=== PATIENT | female | born 1995 | race Caucasian/White ===

== ENCOUNTER 2022-01-10 09:34 | Outpatient (REF) | payer OTHER, SELFPAY ==
[2022-01-10 10:35] LABS: COVID-19 Test Negative (Negative)
== END 2022-01-10 09:35 | disposition home or self-care (01) ==
LOC: HO.LAB 09:34
PROVIDERS: PCP Internal Medicine; Visit Provider Internal Medicine
DX: Z20.822 Contact with and (suspected) exposure to COVID-19 (principal)
CPT/HCPCS: 87635; C9803

== ENCOUNTER 2025-09-01 13:10 | Outpatient (AMB) | payer OTHER, SELFPAY ==
--- NOTE | 2025-09-01 13:13 | A.OFFVIS_ITS ---
Intake Visit Reasons: 1YR Allergies No Known Allergies Allergy (Unverified 09/01/25 13:21) Medication List - Last Reconciled 09/01/25 by Adriana Crowe CNP amitriptyline 150 mg PO BEDTIME clonidine HCl mg PO norethindrone (contraceptive) 0.35 mg PO DAILY prochlorperazine maleate (Compazine) 5 mg PO DAILY PRN propranolol ER 120 mg PO DAILY sumatriptan succinate take 1 tab at onset of headache; if no relief, may repeat 1 tab after at least 2 hrs; max = 2 tabs/24 hrs PO HPI Comments Details: 30-year-old woman headaches and tremors. She also has some vertigo and motion sickness when in the back seat of a car. She was doing okay. She was getting few headaches a month. She had about 3 bad breakthrough migraines in the last year. She tried sumatriptan as needed, but medication did not help and got tingling feeling all over body. Tremors were better with propranolol. No functional impairment. No difficulty eating or drinking. She was working as [employer]. [facility] Medical History (Updated 09/01/25 @ 13:19 by Adriana Crowe CNP) Migraine Insomnia Review of Systems Const Denies chills, Denies daytime sleepiness, Reports difficulty sleeping, Reports fatigue, Denies fever(s), Denies frequent falls, Reports headache(s), Denies increased appetite, Denies poor appetite, Denies snoring, Denies weakness, Denies weight gain and Denies weight loss Eyes Denies loss of vision ENT Denies vertigo, Reports dizziness, Reports headache(s) and Reports neck pain Card Denies chest pain at rest, Denies chest pain with activity, Denies syncope, Denies leg edema, Denies palpitations, Denies dyspnea and Denies dyspnea on exertion Resp Denies cough, Denies dyspnea, Denies dyspnea on exertion and Denies snoring GI Denies abdominal pain, Denies constipation, Denies heartburn, Denies diarrhea and Denies nausea Denies urinary frequency, Denies urinary incontinence and Denies urinary urgency Musc Denies abnormal gait, Reports back pain, Reports myalgias, Reports arthralgias, Reports neck pain, Denies numbness and Denies tingling Neuro Denies abnormal gait, Denies vertigo, Reports dizziness, Denies syncope, Denies frequent falls, Reports headache(s), Denies lack of coordination, Denies loss of vision, Denies memory loss, Denies numbness, Denies Other visual disturbances, Denies restless legs, Denies seizure-like activity, Denies tingling, Denies paresthesias, Reports tremor(s) and Denies weakness Psych Reports anxiety, Denies depression, Denies auditory hallucinations, Denies memory loss and Denies visual hallucinations Endo Reports fatigue and Denies palpitations Physical Exam Const Other: General Appearance:? normal, in no acute distress. Heart:? S1, S2 normal, no murmurs. Lungs:? clear anteriorly and posteriorly. Musculoskeletal:? normal. Extremities:? no edema. Psych:? alert, oriented, cognitive function intact, cooperative with exam. Neuro Other: Abnormal Neurological Findings:?Slight irregular jerking tremors of the extended upper extremities. ? Mental Status: alert and oriented X 3. Normal attention, orientation, memory, and affect. Cranial Nerves: Pupils are equal, round, and reactive to light. External ocular muscles are intact. Visual sheldon are full, no ptosis. Face is symmetrical, no facial weakness or droop. Facial sensations are normal. Tongue protrudes in mid line. Palate elevates symmetrically. Shoulder shrugging is normal Motor Examination: Normal muscle tone, bulk and strength. No atrophy or fasciculations. No drift of the extended upper extremities. DTR 2+. Plantars are flexor. Sensory Exam: Normal light touch, temperature, pinprick, vibration, and joint- position sensations. Rhomberg sign is absent. Coordination: No ataxia. No titubation. Gait Exam: Within normal limits. Cerebellar Signs: [id number] is okay. Extrapyramidal System: Tremor as above, no rigidity with normal facial expressions. No bradykinesia. No bradyphrenia. Normal arm swing and posture. No propulsion or retropulsion. Speech: Normal. Assessment & Plan Assessment & Plan (1) Tension headache: Code(s): G44.209 - Tension-type headache, unspecified, not intractable Category: Medical Plan: Continue amitriptyline 150mg 1 tablet at bedtime. (2) Migraine: Code(s): G43.909 - Migraine, unspecified, not intractable, without status migrainosus Category: Medical Qualifiers: Migraine type: unspecified Status migrainosus presence: without status migrainosus Intractability: not intractable Qualified Code(s): G43.909 - Migraine, unspecified, not intractable, without status migrainosus Plan: Sumatriptan as needed did not help and had side effect of tingling feeling all over body, medication was stopped. Start rizatriptan 10mg 1 tablet as needed for migraine, use/side effects reviewed. 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 Follow up in 1 year or sooner as needed. (4) Vertigo: Code(s): R42 - Dizziness and giddiness Category: Medical Plan: Continue prochlorperazine 5mg 1 tablet as needed for vertigo/motion sickness #20 for 30 days. (5) Motion sickness: Code(s): T75.3XXA - Motion sickness, initial encounter Category: Medical Qualifiers: Encounter type: subsequent encounter Qualified Code(s): T75.3XXD - Motion sickness, subsequent encounter Plan: Continue prochlorperazine 5mg 1 tablet as needed for vertigo/motion sickness #20 for 30 days. Plan Meds tried: sumatriptan (did not work, tingly feeling all over body) Medications: New rizatriptan take 1 tab at onset of headache; if no relief may repeat 1 tab after at least 4 hrs; max = 2 tabs/24 hr PO 10 tabs 5RF 30 days amitriptyline 150 mg PO BEDTIME 90 tabs 3RF 90 days Coding Level of Care Code Est Pt Level 4 (50422) Diagnoses Tension headache G44.209 Migraine without status migrainosus, not intractable, unspecified migraine type G43.909 Migraine type: unspecified Status migrainosus presence: without status migrainosus Intractability: not intractable Benign familial tremor G25.0 Vertigo R42 Motion sickness, subsequent encounter T75.3XXD Encounter type: subsequent encounter
--- OUTSIDE RECORDS SUMMARY | 2025-09-01 17:17 | XMS_ITS ---
Author Name [facility] Organization Unknown History of Medication Use Medication Directions Dispensed Refills Start Date End Date Stat us amoxicillin-clavulan ate (AUGMENTIN) 875-125 MG per tablet Take 1 tablet by mouth 2 (two) times a day. 04/29/2023 05/05/2023 completed Apri 0.15-30 MG-MCG per tablet Take 1 tablet by mouth daily. 04/04/2023 active propranolol (INDERAL LA) 120 MG 24 hr capsule Take by mouth daily. 03/09/2023 active amitriptyline (ELAVIL) 150 MG tablet TAKE 1 TABLET BY MOUTH EVERY DAY AT BEDTIME FOR 90 DAYS 02/16/2023 active cloNIDine (CATAPRES) 0.2 MG tablet Take 0.3 mg by mouth. 11/25/2022 active Problems Problem Status Onset Date Problem Type Date of Resoluti on Source Cat bite, initial encounter active EncounterDiagnosisAct [facility] Cat scratch of hand, right, initial encounter active EncounterDiagnosisAct [facility] Abrasions of multiple sites active EncounterDiagnosisAct [facility] T Encounters Encounter Type Encounter Reason Primary Diagnosis Location Date Ambulatory Bitten by cat, initial encounter Bitten by cat, initial encounter [facility] 04/29/2023 Care Team Organization Name Specialty Phone Email Start Date End Da te [facility] 10/05/2023 [facility] NO PCP Primary Care 04/29/2023 04/29/2023 [facility] PCP,No Primary Care 04/29/2023 [facility] Floyd Greco Primary Care 11/20/202204/15 [facility] Tiffany French Primary Care 07/23/202204/15
--- OUTSIDE RECORDS SUMMARY | 2025-09-01 17:17 | XMS_ITS | Clinical Summary ---
Author Organization [facility] Address [address] [place] [address] Care Team Providers Care Sales Representative Publications Name Role Phone Pcp, No Primary Care Provider Unavailabl e Allergies No known active allergies Medications amitriptyline (ELAVIL) 150 MG tablet TAKE 1 TABLET BY MOUTH EVERY DAY AT BEDTIME FOR 90 DAYS 02/16/2023 Active cloNIDine (CATAPRES) 0.2 MG tablet Take 0.3 mg by mouth. 11/25/2022 Active propranolol (INDERAL LA) 120 MG 24 hr capsule Take by mouth daily. 03/09/2023 Active Apri 0.15-30 MG-MCG per tablet Take 1 tablet by mouth daily. 04/04/2023 Active Active Problems No known active problems Social History Tobacco Use Types Packs/Day Years Used Date Smoking Tobacco: Never Smokeless Tobacco: Never Tobacco Cessation:Counseling Given: Not Answered Comments Unknown Sex and Gender Information Value Date Recorded Sex Assigned at Not on file Legal Sex Female 4:26 PM EDT Gender Identity Not on file Sexual Orientation Not on file Last Filed Vital Signs Vital Sign Reading Time Taken Comments Blood Pressure 122/89 04/29/2023 4:42 PM EDT Pulse 92 04/29/2023 4:42 PM EDT Temperature 36.4 C (97.6 F) 04/29/2023 4:42 PM EDT Respiratory Rate 16 04/29/2023 4:42 PM EDT Oxygen Saturation 99% 04/29/2023 4:42 PM EDT Inhaled Oxygen Concentration - - Weight - - Height - - Body Mass Index - - Plan of Treatment Health Maintenance Due Date Last Done Comments Hepatitis C Virus Screening 1996 HIV Screening 02/28/2009 DTaP/Tdap/Td Vaccines (1 - Tdap) 02/28/2015 Hepatitis B Vaccines (1 of 3 - 19+ 3-dose series) 02/28/2015 Pap Smear (Ages 21-65) 02/28/2017 Influenza Vaccine 04/15/2025 06/15/2010 COVID-19 Vaccine ( - 2024-2 6 season) 2025 11/25/2021, 01/27/2021, 12/28/2020 HPV Vaccines (No Doses Required) Completed Pneumococcal Vaccine: Pediatric (0-5 Years) and At-Risk Patients (6 to 49 Years) Aged Out No longer eligible b ased on patient's age to complete this topic Insurance [facility] [employer] Care Teams Sales Representative Publications Relationship Specialty Start Date End Date Pcp, No [address] [id number] PCP - General 04/16/23
--- OUTSIDE RECORDS SUMMARY | 2025-09-01 17:17 | XMS_ITS | Encounter Summary ---
Author Organization [facility] Address [address] [place] [address] Care Team Providers Care Stretcher Leveler Operator Name Role Phone Floyd Greco MD Primary Care Provider [phone] Reason for Visit * Reason Onset Date Comments Results 08/30/2025 Encounter Details Date Type Department Care Team ([facility] Contact Info) Description 08/30/2025 Telephone Adult Medicine [address] [id number] [place], [place] Social History Tobacco Use Types Packs/Day Years Used Date Smoking Tobacco: Never Smokeless Tobacco: Never Alcohol Use Standard Drinks/Week Comments Yes 0 (1 standard drink = 0.6 oz pur e alcohol) Housing Instability Answer Date Recorde d Are you worried that in the next 2 months you may not have stable housing? Yes 09/23/2024 Food Access & Nutrition Answer Date Rec orded Do you have access to a vari ety of food including fruits and vegetables? Yes 09/23/2024 Access to Healthcare Answer Date Record ed Within the last 3 months, ho w many times did you visit the emergency department for your medical care? 0 09/23/2024 Health Literacy Answer Date Recorded How often do you need to hav e someone help you when you read instructions, pamphlets, or other written material from your doctor or pharmacy? Never 09/23/2024 Caregiver: How often do you need to have someone help you when you read instructions, pamphlets, or other written material from your doctor or pharmacy? Not on file 09/23/2024 Financial Risk Answer Date Recorded How hard is it for you to pa y for the very basics like food, housing, medical care, and air conditioning / heating? Not very hard 09/23/2024 Transportation Answer Date Recorded Has the lack of transportati on kept you from meetings, work, or from getting things needed for daily living? No Has the lack of transportati on kept you from medical appointments or from getting medications? No 09/23/2024 Social Isolation Answer Date Recorded How often do you feel lonely or isolated from th ose around you? Always 09/23/2024 Food Risk Answer Date Recorded Within the past 12 months we worried whether our food would run out before we got money to buy more. Never true 09/23/2024 Within the past 12 months th e food we bought just didn't last and we didn't have money to get more. Never true 09/23/2024 Dependent Care Answer Date Recorded Do you need help finding or paying for care for your loved ones. For example, child welfare director or elderly care for an older adult? No 09/23/2024 Education Answer Date Recorded Do you think completing more education or training, like finishing a GED, going to college, or learning a trade, would be helpful for you? No 09/23/2024 Employment and Income Answer Date Recor ded During the last four weeks, have you been actively looking for work? No 09/23/2024 Living Situation Answer Date Recorded What is your living situation? Unrecognized valu e 09/23/2024 Comments No Sex and Gender Information Value Date Recorded Sex Assigned at Not on file Legal Sex Female 5:25 PM EST Gender Identity Not on file Sexual Orientation Not on file documented as of this encounter Progress Notes * Patty Mensah MA - 09/01/2025 8:06 AM EST Images from the original note were not included. Sylwia Yanez MA 08/31/25 8:09 AM Note Pt notified. * Melissa Ochoa MA - 08/30/2025 12:20 PM EST Inform patient: ANY URGENT OR ABNORMAL RESULTS WIILL RESULT IN A CALL BACK TO THE PATIENT DENY. Type of test: :throat culture Date test was performed: 08/19/25 Where was the test performed: [facility] Who ordered this test?: Nayeli DUQUE Is the doctor here today?: yes Can the message wait until the doctor returns?: no IF PATIENT'S PCP IS NOT IN INSTRUCT PATIENT THAT THEY WILL RECEIVE A CALL BACK WHEN THE PCP IS IN THE OFFICE NEXT. documented in this encounter Plan of Treatment Not on file documented as of this encounter Visit Diagnoses Not on filedocumented in this encounter Additional Health Concerns Assessment Noted Time PHQ-9 Depression Total Score: 15 025 8:58 AM EST documented as of this encounter Care Teams Stretcher Leveler Operator Relationship Specialty Start Date End Date Floyd Greco MD [address] [place] [address] [place] PCP - General Internal Medicine 01/31/22 documented as of this encounter
--- OUTSIDE RECORDS SUMMARY | 2025-09-01 17:17 | XMS_ITS | Encounter Summary ---
Author Organization [facility] Address [address] [place] [address] Care Team Providers Care Materials Planning Analyst Name Role Phone Floyd Greco MD Primary Care Provider [phone]- [phone] Reason for Visit * Reason Onset Date Comments Results 08/19/2025 Encounter Details Date Type Department Care Team ([facility] Contact Info) Description 08/19/2025 Results Follow-Up Adult Medicine [address] [phone] Dona Tyler PA [address] [place] [address] Social History Tobacco Use Types Packs/Day Years [...] care for your loved ones. For example, childbirth and infant care teacher or elderly care for an older adult? [...] as of this encounter Progress Notes * Sylwia Yanez MA - 08/31/2025 8:09 AM EST Pt notified. * Melissa Ochoa MA - 08/25/2025 2:21 PM EST Inform patient: ANY URGENT OR ABNORMAL RESULTS WIILL RESULT IN A CALL BACK TO THE PATIENT DENY. Type of test: :throat swab Date test was performed: 08/18/25 Where was the test performed: [facility] Who ordered this test?: AMARILIS DUQUE Is the doctor here today?: yes [...] documented as of this encounter Care Teams Materials Planning Analyst Relationship Specialty Start Date End Date Floyd Greco MD [address] [place] [address] [place] PCP - General Internal Medicine 01/31/22 documented as of this encounter
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
== END 2025-09-01 13:30 | disposition home or self-care (01) ==
LOC: HO.HSM 13:11
PROVIDERS: PCP Internal Medicine; Referring Provider Internal Medicine; Visit Provider Registered Nurse
DX: G44.209 Tension-type headache, unspecified, not intractable (principal); G43.909 Migraine, unspecified, not intractable, without status migrainosus; G25.0 Essential tremor; R42 Dizziness and giddiness; T75.3XXD Motion sickness, subsequent encounter
CPT/HCPCS: 99214

== ENCOUNTER → 2025-09-01 13:10 | Outpatient (BNVA) | payer OTHER, SELFPAY | PROVIDERS: PCP Internal Medicine; Referring Provider Internal Medicine; Visit Provider Registered Nurse | DX: G43.909 Migraine, unspecified, not intractable, without status migrainosus (principal); G44.209 Tension-type headache, unspecified, not intractable; G25.0 Essential tremor; R42 Dizziness and giddiness; T75.3XXD Motion sickness, subsequent encounter; Y92.810 Car as the place of occurrence of the external cause | CPT/HCPCS: 99212 ==